=== PATIENT | male | born 1970 | race Caucasian/White ===

== ENCOUNTER 2021-12-29 14:26 | Emergency (ER) | payer SELFPAY ==
[2021-12-29] MEDS ORDERED: CEPHALEXIN500 M1 PO (17:13)
== END 2021-12-29 17:24 | disposition home or self-care (01) ==
LOC: ER1 14:26
DX: S92.532A Displaced fracture of distal phalanx of left lesser toe(s), initial encounter for closed fracture (principal); S91.312A Laceration without foreign body, left foot, initial encounter; F17.200 Nicotine dependence, unspecified, uncomplicated; W20.8XXA Other cause of strike by thrown, projected or falling object, initial encounter; Y99.0 Civilian activity done for income or pay
CPT/HCPCS: 12002; 73630; 90471; 90714; 99283